=== PATIENT | male | born 1950 | race Caucasian/White ===

== ENCOUNTER 2019-12-15 19:02 | Emergency (ER) | payer OTHER ==
[2019-12-15] MEDS ORDERED: DIPHTH,PERTUSS(ACELL),TET 0.5 ML DISP.SYRIN IM ONE ×2 (19:09→21:19)
--- NOTE | 2019-12-15 19:09 | PDOC ---
Rapid Medical Evaluation Time Seen by Provider: 12/15/19 19:05 Medical Evaluation: 12/15/19 19:05 CC: facial abrasions s/p trip and fall over uneven sidewalk PE: No bony deformity. Abrasion to left lower face Orders: boostrix Patient will proceed to ED for further evaluation. Discharge Disposition - Diagnosis Fall - Referrals - Patient Instructions - Post Discharge Activity
[2019-12-15 19:10] VITALS: BP 128/81; PULSE 65; TEMP 97.9; BMI 32.5
--- NOTE | 2019-12-15 19:24 | PDOC ---
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 He struck his face. No LOC. Patient is ambulatory. Patient is on full aspirin. GENERAL/CONSTITUTIONAL: No fever, weakness. dizziness HEAD, EYES, EARS, NOSE AND THROAT: No change in vision. No ear pain or discharge. No sore throat. CARDIOVASCULAR: No chest pain RESPIRATORY: No shortness of breath or cough GASTROINTESTINAL: No pain, nausea, vomiting, diarrhea or constipation GENITOURINARY: No dysuria MUSCULOSKELETAL: No neck or back pain SKIN: No rash, + abrasion NEUROLOGIC: No headache, vertigo, loss of consciousness, or loss of sensation. GENERAL: The patient is awake, alert, and fully oriented, in no acute distress. HEAD: Abrasion to left chin, left cheek, otherwise normal with no signs of trauma. EYES: Pupils equal, round and reactive to light, sclera anicteric, conjunctiva clear. ENT: pharynx: no erythema, no exudate, uvula midline, questionable left upper dental trauma NECK: supple CHEST: clear, nontender, rr ABD: soft, nontender BACK: no tenderness or signs of injury EXTREMITIES: Normal range of motion, no edema. NEUROLOGICAL: Normal speech, normal gait. Cranial nerves II through XII grossly intact, no gross focal abnormalities SKIN: Warm, Dry Past History - Past Medical History Allergies/Adverse Reactions: Allergies Allergy/AdvReac Type Severity Reaction Status Date / Time No Known Allergies Allergy Verified 12/15/19 19:09 Cardiac Disorders: Yes (ND 1995) COPD: No HTN: Yes Hypercholesterolemia: Yes Seizures: Yes (HYPO) Thyroid Disease: Yes Other medical history: PARKINSONS - Immunization History Immunization Up to Date: Yes - Psycho Social/Smoking Cessation Hx Smoking History: Never smoked Have you smoked in the past 12 months: No Information on smoking cessation initiated: No Hx Alcohol Use: No Drug/Substance Use Hx: No *Physical Exam - Vital Signs Last Vital Signs Temp Pulse Resp BP Pulse Ox 97.9 F 65 18 128/81 99 12/15/19 19:05 12/15/19 19:05 12/15/19 19:05 12/15/19 19:05 12/15/19 19:05 Medical Decision Making - Medical Decision Making 12/15/19 19:42 69-year-old female with history of early Parkinson's, ND who tripped and fell on uneven sidewalk, hitting the left side of his face, no other injuries. Patient does not know when his last tetanus was. Patient denies any headache. Patient is on full aspirin. Will get head and facial CT Discharge - Discharge Information Problems reviewed: Yes Clinical Impression/Diagnosis: Fall Qualifiers: Encounter type: initial encounter Qualified Code(s): W19.XXXA - Unspecified fall, initial encounter Facial trauma Qualifiers: Encounter type: initial encounter Qualified Code(s): S09.93XA - Unspecified injury of face, initial encounter Condition: Stable Disposition: HOME - Admission No - Follow up/Referral Referrals: Heraclio Mccallum MD [Primary Care Provider] - - Patient Discharge Instructions Patient Printed Discharge Instructions: DI for Closed Head Injury, DI for Abrasion Additional Instructions: Return to the nearest ER if worsening headache, nausea, vomiting, unsteady or worsening symptoms. You can take Tylenol every 4 hours for headache. Followup with your doctor and dentist tomorrow - Post Discharge Activity
== END 2019-12-15 21:27 | disposition home or self-care (01) ==
LOC: JERFT 19:02
PROC: 3E0234Z Introduction of Serum, Toxoid and Vaccine into Muscle, Percutaneous Approach (ICD-10-PCS; principal; 2019-12-15)
DX: S00.81XA Abrasion of other part of head, initial encounter (principal); W18.39XA Other fall on same level, initial encounter; Y93.01 Activity, walking, marching and hiking; Y92.480 Sidewalk as the place of occurrence of the external cause; Y99.8 Other external cause status; I25.10 Atherosclerotic heart disease of native coronary artery without angina pectoris; I10 Essential (primary) hypertension; I25.2 Old myocardial infarction; Z79.82 Long term (current) use of aspirin; E78.00 Pure hypercholesterolemia, unspecified; E03.9 Hypothyroidism, unspecified; G20 Parkinson's disease
CPT/HCPCS: 70450-TC; 70486-TC; 90715; 99281-25

== ENCOUNTER → 2021-12-23 | Day surgery (SDC) | payer OTHER | END | disposition home or self-care (01) | LOC: JRADIR 09:30 | PROVIDERS: ATTEND Internal Medicine Endocrinology, Diabetes & Metabolism | PROC: 0G9K3ZX Drainage of Thyroid Gland, Percutaneous Approach, Diagnostic (ICD-10-PCS; principal; 2021-12-23) | DX: C73 Malignant neoplasm of thyroid gland (principal) | CPT/HCPCS: 10005; 76942; 88173; 88305-TC; 88341-TC; 88342-TC ==

== ENCOUNTER 2023-03-30 04:23 | Day surgery (SDC) | payer OTHER ==
[2023-03-27 09:36] VITALS: BMI 34.0
[2023-03-30 10:38] VITALS: TEMP 97.3
[2023-03-30 10:58] VITALS: PULSE 63
[2023-03-30 11:10] VITALS: BP 148/79; RESP 18
== END 2023-03-30 11:32 | disposition home or self-care (01) ==
LOC: JASU-ENDO 04:23
PROVIDERS: ATTEND Internal Medicine Gastroenterology
PROC: 0DBN8ZX Excision of Sigmoid Colon, Via Natural or Artificial Opening Endoscopic, Diagnostic (ICD-10-PCS; 2023-03-30)
PROC: 0DBP8ZX Excision of Rectum, Via Natural or Artificial Opening Endoscopic, Diagnostic (ICD-10-PCS; 2023-03-30)
PROC: 0DB98ZX Excision of Duodenum, Via Natural or Artificial Opening Endoscopic, Diagnostic (ICD-10-PCS; 2023-03-30)
PROC: 0DB78ZX Excision of Stomach, Pylorus, Via Natural or Artificial Opening Endoscopic, Diagnostic (ICD-10-PCS; 2023-03-30)
PROC: 0DBM8ZX Excision of Descending Colon, Via Natural or Artificial Opening Endoscopic, Diagnostic (ICD-10-PCS; principal; 2023-03-30 10:00)
DX: Z12.11 Encounter for screening for malignant neoplasm of colon (principal); K62.1 Rectal polyp; K63.5 Polyp of colon; K55.20 Angiodysplasia of colon without hemorrhage; K57.30 Diverticulosis of large intestine without perforation or abscess without bleeding; K64.8 Other hemorrhoids; K26.3 Acute duodenal ulcer without hemorrhage or perforation; K29.70 Gastritis, unspecified, without bleeding; Z80.0 Family history of malignant neoplasm of digestive organs; R63.4 Abnormal weight loss
CPT/HCPCS: 88305-TC; 88342-TC